=== PATIENT | male | born 1990 | race Caucasian/White ===

== ENCOUNTER 2020-10-05 15:59 | Emergency (ER) | payer OTHER ==
[~2020-10-05] VITALS: Ht 182.9 cm; Wt 87.1 kg
[2020-10-05] MEDS ORDERED: PROTONIX40 M3 PO (16:08)
[2020-10-05] MEDS ORDERED: CLARITIN10 M3 PO (16:09)
--- NOTE | 2020-10-05 16:28 | EKG ---
[place] [address] ELECTROCARDIOGRAM REPORT Name: ROBBY VELA Room: [facility]#: [id number] Admission: Attend Phys: Discharge: Date of : 89 Date of Service: 10/05/20 1604 Report #: [id number] THIS REPORT FOR: //name// [facility] ED Test Date: 2020-10-05 Test Time: 16:04:27 Pat Name: ROBBY VELA Department: Room: Gender: Housing Case Manager: : 1990 Requested By: Lokesh Bejarano Order Number: [id number] Tabatha MD: Haresh Willson Measurements Intervals [place] Rate: 81 P: 61 IN: 143 QRS: -29 QRSD: 109 T: 102 QT: 341 QTc: 396 Interpretive Statements Sinus rhythm RSR' in V1 or V2, probably normal variant Inferior infarct, old No previous ECG available for comparison Electronically Signed On 10-05-2020 16:28:19 CDT by Haresh Willson [email or web address] <ELECTRONICALLY SIGNED> By: Haresh Willson MD, [facility] 10/05/20 1628 1604 1604 Haresh Willson MD, FACC /EPI
[2020-10-05 16:46] LABS: ABSOLUTE EOSINOPHILS 0.1 thou/uL (0.0-0.7); ABSOLUTE LYMPHOCYTES 1.5 thou/uL (0.8-5.3); ABSOLUTE MONOCYTES 0.5 thou/uL (0.0-1.2); ABSOLUTE NEUTROPHILS 2.4 thou/uL (1.6-8.1); BASOPHILS 0.5 %; HEMATOCRIT 42.1 % (42.0-52.0); HEMOGLOBIN 14.1 gm/dL (14.0-18.0); LYMPHOCYTES 32.6 %; MCH 28.5 pg (26.0-34.0); MCHC 33.4 g/dL (28.0-37.0); MCV 85.5 fL (80.0-100.0); MONOCYTES 10.8 %; MPV 6.7 fl. (7.2-11.1); NUCLEATED RBCS 0 /100WBC; PLATELET COUNT* 426 thou/uL (150-400); POLYS 53.1 %; RBC 4.93 mil/uL (4.50-6.00); RDW-CV 13.9 % (10.5-14.5); WBC 4.5 thou/uL (4.0-11.0)
[2020-10-05 16:56] LABS: CALCIUM 8.7 mg/dL (8.5-10.1); CREATININE 0.8 mg/dL (0.6-1.3); POTASSIUM 3.5 mmol/L (3.5-5.1)
[2020-10-05 17:07] LABS: ALBUMIN 3.9 g/dL (3.4-5.0); TOTAL BILIRUBIN 0.4 mg/dL (<0.1-1.0); TOTAL PROTEIN 6.9 g/dL (6.4-8.2)
[2020-10-05 17:15] LABS: BE 2.2 mmol/L (-2 to +3); PCO2 33.1 mmHg (35.0-45.0); PO2 82.1 mmHg (75.0-100.0); pH 7.494 (7.340-7.450)
[2020-10-05] MEDS ORDERED: DOXYCYCLINE 10100 MG PO (17:56)
[2020-10-05 18:19] VITALS: BP 136/77
--- NOTE | 2020-10-06 14:34 | EKG ---
[place] [address] ELECTROCARDIOGRAM REPORT Name: ROBBY VELA Room: [facility]#: [id number] Admission: 10/05/20 Attend Phys: Discharge: 10/05/20 Date of : [birth year] Date of Service: 10/05/20 1604 Report #: [id number] THIS REPORT FOR: //name// [facility] ED Test Date: 2020-10-05 Test Time: 16:04:27 Pat Name: ROBBY VELA Department: Room: Gender: Hospital Director: DARRICK : 1990 Requested By: Tank Jimenez Order Number: [id number] MD: Haresh Willson Measurements Intervals [place] Rate: 81 P: 61 RI: 143 QRS: -29 QRSD: 109 T: 102 QT: 341 QTc: 396 Interpretive Statements Sinus rhythm RSR' in V1 or V2, probably normal variant Inferior infarct, old Electronically Signed On 10-05-2020 16:28:19 CDT by Haresh Willson No previous ECG available for comparison Electronically Signed On 10-06-2020 14:34:23 CDT by Haresh Willson [email or web address] <ELECTRONICALLY SIGNED> By: Haresh Willson MD, FACC 10/06/20 1434 1604 1604 Haresh Willson MD, FAC /EPI
== END 2020-10-05 18:22 | disposition home or self-care (01) ==
LOC: M.ERS 15:59
PROVIDERS: Physician Assistant
DX: J18.9 Pneumonia, unspecified organism (principal); R00.2 Palpitations; Z79.899 Other long term (current) drug therapy; Z88.2 Allergy status to sulfonamides; Z88.8 Allergy status to other drugs, medicaments and biological substances